=== PATIENT | female | born 1930 | race Caucasian/White ===

== ENCOUNTER 2017-02-09 19:15 | Emergency (ER) | payer MEDICAID, MEDICARE ==
[~2017-02-09] VITALS: Ht 157.5 cm; Wt 75.7 kg
[~2017-02-09 19:15] MED LIST: AMIO200T PO; ASPI81TA9 PO; CALC-47 PO; CALC1TAB67 PO; CIPR1DRO2 OT; CRESTOR20 MG PO; CYAN10005 PO; ESCI20TA10 PO; FURO-68 PO; FURO20TA3 PO; GLUC100018 PO; LISI-334 PO; METO50TA2 PO; MULT1TAB52 PO; POTA20TA82 PO; SUCR1TAB PO
[2017-02-09 19:25] VITALS: BP 152/67
[2017-02-09] MEDS ORDERED: METO-269 PO (19:32)
--- NOTE | 2017-02-09 19:32 | PHYS DOC ---
Past Medical History Past Medical History: Bronchitis, CAD, COPD, High Cholesterol, Hypertension, Other Past Surgical History: Appendectomy, Coronary Bypass Surgery, Pacemaker, Tonsillectomy, Other Additional Past Surgical Histo: MITRAL VALVE ANGIOPLASTY, PACEMAKER/DEFIB. Alcohol Use: None Drug Use: None Adult General Chief Complaint Chief Complaint: MEDICATION REFILL HPI HPI Patient is a 86 year old female who presents for medication refill. Patient reports she obtains her metoprolol rx (for HTN) through the mail; she has run out of this medication and does not have any more ordered as of yet. She does not have any acute complaints other than needing a medication refill. She has had a sore throat recently, and just completed a course of antibiotics. In addition, she has chronic drainage from her L ear. Review of Systems Review of Systems Constitutional: Denies fever or chills HENT: Chronic sore throat and L ear drainage Respiratory: Denies cough or shortness of breath Cardiovascular: Denies chest pain GI: Denies abdominal pain, nausea, vomiting, or diarrhea Neurologic: Denies headache, focal weakness or sensory changes Allergies Allergies Allergies Coded Allergies Type Severity Reaction Last Updated Verified No Known Drug Allergies 07/03/14 No Physical Exam Physical Exam Constitutional: Well developed, well nourished, no acute distress, non-toxic appearance HENT: Normocephalic, atraumatic. Oropharynx clear without erythema or exudate. L ear canal clear; had piece of cotton in place with small amount of dried rivero fluid on it Eyes: EOMI, conjunctiva normal, no discharge Neck: No stridor Pulmonary: No respiratory distress. Lungs CTAB Cardiovascular: Heart RRR, murmur noted Skin: Warm, dry Neurologic: Alert and oriented X 3 Current Patient Data Vital Signs Vital Signs Date Time Temp Pulse Resp B/P Pulse Ox O2 Delivery O2 Flow Rate FiO2 02/09/17 19:25 98.0 65 18 95 Room Air 98.0 EKG EKG [] Radiology/Procedures Radiology/Procedures [] Course & Med Decision Making Course & Med Decision Making Pertinent Labs and Imaging studies reviewed. (See chart for details) Patient is 86 year old female who presents for medication refill. BP 152/67 in ED. No acute complaints so will not pursue workup. Patient provided with 30 day course of metoprolol (specifically metoprolol ER 50mg daily). Patient discharged home. Dragon Disclaimer Dragon Disclaimer This electronic medical record was generated, in whole or in part, using a voice recognition dictation system. Departure Departure Impression: Primary Impression: Medication refill Disposition: HOME, SELF-CARE Condition: STABLE Referrals: HERMES WHITE M.D. (PCP) Additional Instructions: Thank you for allowing us to provide care today in the Emergency Department. Take the provided medication as directed. Schedule a follow up appointment with your primary care doctor. Keep your appointment with the ENT doctor as well. Return promptly to the Emergency Department if you develop any new or concerning symptoms. Scripts Metoprolol Succinate (Toprol Xl)50 Mg Tab.er.[id number] Mg PO DAILY FOR HYPERTENSION #30 TAB Prov:ASHLEY JAMES MD 02/09/17 ASHLEY JAMES MD Feb 09, 2017 19:32
== END 2017-02-09 19:41 | disposition home or self-care (01) ==
LOC: ER 19:15
DX: Z76.0 Encounter for issue of repeat prescription (principal); J31.2 Chronic pharyngitis; J44.9 Chronic obstructive pulmonary disease, unspecified; I25.10 Atherosclerotic heart disease of native coronary artery without angina pectoris; I10 Essential (primary) hypertension; E78.00 Pure hypercholesterolemia, unspecified; Z95.0 Presence of cardiac pacemaker
CPT/HCPCS: 99283